=== PATIENT | female | born 1945 | race Caucasian/White ===

== ENCOUNTER 2019-11-09 14:21 | Outpatient (CLI) | payer MEDICARE, OTHER ==
--- NOTE | 2019-11-09 17:41 | MRI ---
MRI LUMBAR SPINE NONCONTRAST: DATE: 11/09/2019 HISTORY: 73-year-old female with low back pain and lumbar degenerative disc disease. COMPARISON: None FINDINGS: For the purposes of this report, it will be assumed that there are 5 lumbar-type vertebrae. Vertebral body heights are maintained. There is a levoscoliosis of the lumbar spine. There is multilevel degenerative disc disease and facet DJD, which is worse on the concave sides of the curvature, which would be on the right at the upper lumbar spine, and on the left in the lower lumbar spine and lumbosacral junction. T12-L1:No central stenosis or high-grade neural foraminal stenosis. L1-2:Slight retrolisthesis of L1 on L2. High-grade disc space narrowing. Conus medullaris terminates at upper L2. Moderate right neural foraminal stenosis. Mild to moderate left neural foraminal stenosis. No central stenosis. L2-3:Mild disc bulge. Mild to moderate right neural foraminal stenosis. No high-grade left neural for aminal stenosis. Moderate bilateral facet DJD. Mild central stenosis. L3-4:Disc bulge. Mild to moderate right neural foraminal stenosis. Moderate left neural foraminal jennifer nosis. Ligamentum flavum thickening and moderate bilateral facet DJD. Moderate central spinal canal stenosis. L4-5:Severe bilateral facet DJD causes grade 1 anterolisthesis of L4 on L5. Diffuse disc bulge. Mild to moderate right and moderate left neural foraminal stenosis. Mild to moderate central spinal canal stenosis. L5-S1:Severe left neural foraminal stenosis with chronic impingement on exiting left L5 nerve root an d complete effacement of neural foraminal fat signal. Severe left facet DJD. Diffuse disc bulge. Mild right neural foraminal stenosis. No central stenosis. IMPRESSION: 1. Lumbar spondylosis with multilevel moderate degenerative disc disease, lower level high-grade face t osteoarthrosis, and scoliosis. 2. Severe left neural foraminal stenosis at L5-S1 with chronic impingement of exiting left L5 nerve r oot. 3. Mild grade 1 spondylolisthesis at L4-5 due to severe facet osteoarthrosis.
== END 2019-11-09 14:22 | disposition home or self-care (01) ==
LOC: BICMRI 14:21
PROVIDERS: ATTEND Internal Medicine
DX: M51.36 Other intervertebral disc degeneration, lumbar region (principal); M43.16 Spondylolisthesis, lumbar region; M47.816 Spondylosis without myelopathy or radiculopathy, lumbar region; M41.9 Scoliosis, unspecified; M48.07 Spinal stenosis, lumbosacral region
CPT/HCPCS: 72148

== ENCOUNTER 2019-12-17 12:29 | Outpatient (CLI) | payer MEDICARE, OTHER ==
--- NOTE | 2019-12-17 13:47 | MRI ---
MRI cervical spine noncontrast: 12/17/2019 HISTORY: 74-year-old female with cervical radiculopathy and cervicalgia COMPARISON: None FINDINGS: Cervical spinal cord is normal in size and signal. Reversal of curvature with kyphosis at C5-6. Degenerative disc disease is mild at C2-3, moderate at C3-4, mild at C4-5, mild at C5-6, mild at C6-7 , and minimal at C7-T1. Facet DJD is C2-3: Severe bilaterally C3-4: Moderate to severe bilaterally C4-5: Severe on the right and mild to moderate on the left. C5-6: Normal bilaterally. C6-7: Normal bilaterally C7-T1: Moderate to severe bilaterally. 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 Disc-osteophyte complexes, mostly broad-based, encroach upon anterior aspect of spinal canal at all l evels from C2-3 through C7-T1. These indent the ventral surface of the spinal cord at C3-4 and C5-6. Thickened ligamentum flavum encroaches upon dorsal aspect of spinal canal, indenting the dorsal surfa ce of spinal cord at C2-3 and to lesser degree C3-4. Uncinate process osteophytes of varying sizes, mild and moderate, encroach upon neural foramina at al l levels from C2-3 through C7-T1. Caliber of spinal canal and neural foramina by individual levels are as follows: C1-2: No significant central spinal canal stenosis. Ossified or calcified prominent pannus or degener ative pseudopannus indents the ventral surface of thecal sac. C2-3: Significantly decreased AP dimension, but not transverse dimension, of spinal canal. Moderate o verall central spinal canal stenosis. No high-grade neural foraminal stenosis. C3-4: Retrolisthesis of C3 on C4. Moderate to severe central spinal canal stenosis. Severe right neur al foraminal stenosis. No significant left neural foraminal stenosis. C4-5: The severe right facet DJD causes mild grade 1 anterolisthesis of C4 on C5. Moderate central sp inal canal stenosis. Right neural foraminal stenosis is mild or moderate. No high-grade left neural foraminal stenosis. C5-6: Moderate central spinal canal stenosis. No high-grade neural foraminal stenosis. C6-7: Mild to moderate central spinal canal stenosis. No high-grade right neural foraminal stenosis. Moderate or moderately severe left neural foraminal stenosis. C7-T1: No central spinal canal stenosis. Moderate right neural foraminal stenosis. Moderate-severe le ft neural foraminal stenosis. IMPRESSION: 1.) Moderate cervical spondylosis, with multilevel degenerative disc disease, and multilevel high-gra de facet osteoarthrosis (including severe at right upper levels). 2) multilevel high-grade central spinal canal stenosis and significant neural foraminal stenosis.
--- NOTE | 2019-12-17 14:21 | MRI ---
MRI thoracic spine noncontrast: 12/17/2019 HISTORY: 74-year-old female with ICD-10: "M 54.14, radiculopathy, thoracic region" Mid back pain FINDINGS: Vertebral body heights are maintained. Large hemangioma (venous malformations of bone) involving almo st entire T3 vertebral body. Very small, subcentimeter such lesion at superior endplate of T2. Small one at mid body of T8 approximate 1 cm. Modic type II anterior endplate marrow changes at T6-7. No bone marrow edema at any level. Mild Modic type I endplate marrow changes at T11-12. Mild lateral curvature, probably in response to lumbar levoscoliosis. High-grade disc space narrowing with endplate irregularities including Schmorl's nodes at T2-3 and T11-12, and to a lesser degree T6-7. Thoracic spinal cord is normal in size and signal with no evidence of syringohydromyelia. No extrinsi c cord compression at any level. No severe central spinal canal stenosis or high-grade neural foraminal stenosis at any level. Small disc-osteophyte complexes indent the ventral aspect of the the oswaldo sac at several levels, most notably T2-3, T3-4, and T11-12, without contacting the spinal cord. At T10-11, thickened, probably calcified left ligamentum flavum abuts the dorsal aspect of spinal cor d on the left. There is mild to moderate central spinal canal stenosis at this level. IMPRESSION: 1. Thoracic spondylosis, with multilevel degenerative disc disease, most notably at T2-3 and T11-12. 2. Mild lateral curvature, in response to lumbar levoscoliosis.
== END 2019-12-17 12:30 | disposition home or self-care (01) ==
LOC: BICMRI 12:29
PROVIDERS: ATTEND Specialist
DX: M51.14 Intervertebral disc disorders with radiculopathy, thoracic region (principal); M47.24 Other spondylosis with radiculopathy, thoracic region; M41.9 Scoliosis, unspecified; M47.22 Other spondylosis with radiculopathy, cervical region; M50.10 Cervical disc disorder with radiculopathy, unspecified cervical region; M48.02 Spinal stenosis, cervical region
CPT/HCPCS: 72141; 72146

== ENCOUNTER 2021-11-19 10:48 | Inpatient (IN) | payer MEDICARE ==
[2021-11-19] MEDS ORDERED: Albuterol 200 PUFF (6.7GM INHALER) ONE (11:26)
[2021-11-19 11:43] LABS: #Eosinphils 0.1 thou/uL (0.0-0.7); #Lymphocytes 2.3 thou/uL (1.20-3.40); #Neutrophils 6.3 thou/uL (1.40-6.50); %Basophils 0.3 % (0.0-1.0); %Eosinophils 1.2 % (0.0-10.0); %Lymphocytes 23.2 % (21.0-51.0); %Monocytes 10.4 % (0.0-10.0); %Neutrophils 64.9 % (42.0-75.0); ALT (SGPT) 22 U/L (8-55); AST (SGOT) 22 U/L (5-34); Alkaline Phosphatase 69 U/L (40-110); Anion Gap 17 mmol/L (10-20); BUN (Urea Nitrogen) 19 mg/dL (9.8-20.1); Bilirubin, Total 1.1 mg/dL (0.2-1.2); Calc. Creatinine Clearance 0 mL/min (70-130); Calcium 9.6 mg/dL (7.8-10.44); Carbon Dioxide 26 mmol/L (23-31); Chloride 97 mmol/L (98-107); Globulin 3.3 g/dL (2.4-3.5); Glucose 88 mg/dL (83-110); Hemoglobin 11.6 g/dL (12.0-16.0); Magnesium 1.9 mg/dL (1.6-2.6); Mean Corpuscular HGB CONC 33.5 g/dL (32.0-36.0); Mean Corpuscular Hemoglobin 33.9 pg (27.0-31.0); Platelet Count 354 thou/uL (130-400); Potassium 3.9 mmol/L (3.5-5.1); Protein, Total 7.3 g/dL (5.8-8.1); RBC Distribution Width 11.6 % (11.5-14.5); Red Blood Cell (RBC) Count 3.41 mill/uL (4.20-5.40); Sodium 136 mmol/L (136-145); White Blood Cell (WBC) Count 9.7 thou/uL (4.8-10.8)
[2021-11-19] MEDS ORDERED: cefTRIAXone\\ROCEPHIN 2 GM VIAL ONE (11:45)
[2021-11-19] MEDS ORDERED: Aspirin Chewable 81 MG TAB ONE (11:45)
[2021-11-19] MEDS ORDERED: Nitroglycerin 0.4 MG TAB 1 EACH ONE (11:45)
[2021-11-19 12:44] LABS: Bilirubin Negative (Negative); Blood, Urine Negative (Negative); Clarity Clear (Clear); Glucose, Urine (Dipstick) Normal (Negative); Ketone, Urine Negative (Negative); Leukocyte Negative Leu/uL (Negative); Nitrite Negative (Negative); Protein, Urine (Dipstick) Negative (Neg-Trace); Specific Gravity, Urine 1.026 (1.002-1.036); Urobilinogen Normal mg/dL (Less than 2); pH, Urine 7.5 (5.0-9.0)
[2021-11-19] MEDS ORDERED: Bisacodyl 5 MG TAB PO PRN (13:07)
[2021-11-19] MEDS ORDERED: HYDROcodone/Acetaminophen 5/325 mg Tablet PO PRN (13:07)
[2021-11-19] MEDS ORDERED: Guaifenesin DM 100-10/5 ML UDCUP PO PRN (13:07)
[2021-11-19] MEDS ORDERED: Ondansetron PF 4 MG/2 ML Vial IVP PRN (13:07)
[2021-11-19] MEDS ORDERED: Senokot S 8.6-50 MG TAB PO PRN (13:07)
[2021-11-19] MEDS ORDERED: hydrALAZINE 20 MG/ML VIAL SLOW IVP PRN (13:21)
[2021-11-19] MEDS ORDERED: Azithromycin 500 MG VIAL ONE (13:24)
[2021-11-19] MEDS ORDERED: Furosemide 40 MG/4 ML VIAL ONE (13:24)
[2021-11-19 13:31] LABS: SARS-CoV-2 NAA Rapid Test Not Detected (NotDetected)
[2021-11-19 14:26] LABS: Troponin I 0.025 ng/mL (< 0.028)
[2021-11-19] MEDS: Furosemide 40 MG/4 ML VIAL SLOW IVP SCH (16:47)
[2021-11-19 17:51] VITALS: BMI 29.2
[2021-11-19 17:58] LABS: Troponin I 0.026 ng/mL (< 0.028)
[2021-11-19] MEDS: guaiFENesin ER 600 MG TAB PO SCH (20:25)
[2021-11-19] MEDS: Doxycycline 100 MG CAP PO SCH (20:25)
[2021-11-19] MEDS: Carvedilol 3.125 MG TAB PO SCH (20:25)
[2021-11-19] MEDS: Lisinopril 10 MG TAB PO SCH (20:26)
[2021-11-20] MEDS ORDERED: Melatonin 3 MG TAB PO PRN (00:11)
[2021-11-20] MEDS ORDERED: hydrOXYzine 10 MG TAB PO SCH (00:15)
[2021-11-20 04:27] LABS: Magnesium 1.8 mg/dL (1.6-2.6)
[2021-11-20] MEDS: Furosemide 40 MG/4 ML VIAL SLOW IVP SCH ×2 (05:18→14:51)
[2021-11-20] MEDS: Acetaminophen 325 MG TAB PO PRN (06:47)
[2021-11-20] MEDS: Aspirin Chewable 81 MG TAB PO SCH (09:54)
[2021-11-20] MEDS: Lisinopril 10 MG TAB PO SCH ×2 (09:54→20:13)
[2021-11-20] MEDS: Doxycycline 100 MG CAP PO SCH ×2 (09:55→20:13)
[2021-11-20] MEDS: Enoxaparin Sodium 40 MG/0.4 ML SYRINGE SC SCH (09:55)
[2021-11-20] MEDS: guaiFENesin ER 600 MG TAB PO SCH ×2 (09:55→20:13)
[2021-11-20] MEDS: Carvedilol 3.125 MG TAB PO SCH ×2 (09:55→20:13)
[2021-11-20] MEDS ORDERED: Citalopram 10 MG TAB PO SCH (10:30)
[2021-11-20] MEDS: cefTRIAXone\\ROCEPHIN 1 GM in Sodium Chloride 0.9% 100 ML IVPB SCH (12:11)
[2021-11-21] MEDS: Acetaminophen 325 MG TAB PO PRN (03:20)
[2021-11-21] MEDS: Furosemide 40 MG/4 ML VIAL SLOW IVP SCH ×2 (05:30→14:53)
[2021-11-21 10:02] LABS: #Basophils 0.1 thou/uL (0.0-0.2); #Eosinphils 0.1 thou/uL (0.0-0.7); #Lymphocytes 2.9 thou/uL (1.20-3.40); #Monocytes 0.8 thou/uL (0.11-0.59); #Neutrophils 3.8 thou/uL (1.40-6.50); %Basophils 1.4 % (0.0-1.0); %Eosinophils 1.4 % (0.0-10.0); %Lymphocytes 37.8 % (21.0-51.0); %Monocytes 10.5 % (0.0-10.0); Hemoglobin 13.9 g/dL (12.0-16.0); Mean Corpuscular HGB CONC 32.7 g/dL (32.0-36.0); Mean Corpuscular Hemoglobin 33.3 pg (27.0-31.0); Mean Platelet Volume 6.4 fL (7.4-10.4); Platelet Count 394 thou/uL (130-400); RBC Distribution Width 11.7 % (11.5-14.5); Red Blood Cell (RBC) Count 4.17 mill/uL (4.20-5.40); White Blood Cell (WBC) Count 7.7 thou/uL (4.8-10.8)
[2021-11-21 10:19] LABS: Anion Gap 20 mmol/L (10-20); BUN (Urea Nitrogen) 22 mg/dL (9.8-20.1); Calc. Creatinine Clearance 52 mL/min (70-130); Calcium 9.7 mg/dL (7.8-10.44); Carbon Dioxide 32 mmol/L (23-31); Chloride 89 mmol/L (98-107); Glucose 131 mg/dL (83-110); Potassium 3.7 mmol/L (3.5-5.1); Sodium 137 mmol/L (136-145)
[2021-11-21] MEDS: Aspirin Chewable 81 MG TAB PO SCH (11:33)
[2021-11-21] MEDS: Lisinopril 10 MG TAB PO SCH ×2 (11:33→19:58)
[2021-11-21] MEDS: Citalopram 10 MG TAB PO SCH (11:33)
[2021-11-21] MEDS: guaiFENesin ER 600 MG TAB PO SCH ×2 (11:33→19:58)
[2021-11-21] MEDS: Doxycycline 100 MG CAP PO SCH ×2 (11:33→19:58)
[2021-11-21] MEDS: Enoxaparin Sodium 40 MG/0.4 ML SYRINGE SC SCH (11:33)
[2021-11-21] MEDS: Carvedilol 3.125 MG TAB PO SCH ×2 (11:33→19:59)
[2021-11-21] MEDS: cefTRIAXone\\ROCEPHIN 1 GM in Sodium Chloride 0.9% 100 ML IVPB SCH (11:37)
[2021-11-21] MEDS: Cefdinir 300 MG CAP PO SCH (19:58)
[2021-11-21] MEDS ORDERED: Citalopram 10 MG TAB PO SCH (20:45)
[2021-11-22 05:21] LABS: #Basophils 0.1 thou/uL (0.0-0.2); #Eosinphils 0.1 thou/uL (0.0-0.7); #Monocytes 1.1 thou/uL (0.11-0.59); #Neutrophils 4.5 thou/uL (1.40-6.50); %Eosinophils 1.6 % (0.0-10.0); %Lymphocytes 33.8 % (21.0-51.0); %Monocytes 12.3 % (0.0-10.0); %Neutrophils 51.3 % (42.0-75.0); Hemoglobin 13.4 g/dL (12.0-16.0); Mean Corpuscular HGB CONC 34.5 g/dL (32.0-36.0); Mean Corpuscular Hemoglobin 34.5 pg (27.0-31.0); Mean Corpuscular Volume 99.9 fL (78.0-98.0); Mean Platelet Volume 6.5 fL (7.4-10.4); Platelet Count 386 thou/uL (130-400); RBC Distribution Width 11.6 % (11.5-14.5); Red Blood Cell (RBC) Count 3.88 mill/uL (4.20-5.40); White Blood Cell (WBC) Count 8.8 thou/uL (4.8-10.8)
[2021-11-22 05:40] LABS: Anion Gap 18 mmol/L (10-20); BUN (Urea Nitrogen) 22 mg/dL (9.8-20.1); Calc. Creatinine Clearance 55 mL/min (70-130); Calcium 9.1 mg/dL (7.8-10.44); Carbon Dioxide 33 mmol/L (23-31); Chloride 88 mmol/L (98-107); Glucose 99 mg/dL (83-110); Potassium 3.1 mmol/L (3.5-5.1); Sodium 136 mmol/L (136-145)
[2021-11-22 06:00] LABS: ALT (SGPT) 18 U/L (8-55); AST (SGOT) 19 U/L (5-34); Albumin 3.6 g/dL (3.4-4.8); Alkaline Phosphatase 63 U/L (40-110); Bilirubin, Direct 0.3 mg/dL (0.1-0.3); Bilirubin, Total 0.7 mg/dL (0.2-1.2); Protein, Total 6.8 g/dL (5.8-8.1)
[2021-11-22] MEDS ORDERED: Furosemide 40 MG TAB PO SCH (07:30)
[2021-11-22] MEDS: Cefdinir 300 MG CAP PO SCH ×2 (07:48→18:23)
[2021-11-22] MEDS: Doxycycline 100 MG CAP PO SCH ×2 (07:48→18:23)
[2021-11-22] MEDS: Citalopram 10 MG TAB PO SCH (07:49)
[2021-11-22] MEDS: Enoxaparin Sodium 40 MG/0.4 ML SYRINGE SC SCH (07:50)
[2021-11-22] MEDS: guaiFENesin ER 600 MG TAB PO SCH ×2 (07:50→18:23)
[2021-11-22] MEDS: Carvedilol 3.125 MG TAB PO SCH ×2 (07:50→18:22)
[2021-11-22] MEDS: Lisinopril 10 MG TAB PO SCH ×2 (07:50→18:22)
[2021-11-22] MEDS: Aspirin Chewable 81 MG TAB PO SCH (07:50)
[2021-11-22 12:58] VITALS: TEMP 98.1
[2021-11-22] MEDS ORDERED: Potassium Chloride 20 MEQ TAB PO SCH ×2 (13:00→15:45)
[2021-11-22 18:23] VITALS: BP 145/74
== END 2021-11-22 18:24 | disposition home or self-care (01) | DRG 193 ==
LOC: ERS 10:48 → ERHOLD 12:55 → 2NO 16:16
PROVIDERS: ADMIT Family Medicine; ATTEND Internal Medicine
DX: J18.9 Pneumonia, unspecified organism (principal); J96.01 Acute respiratory failure with hypoxia; I50.31 Acute diastolic (congestive) heart failure; Z20.822 Contact with and (suspected) exposure to COVID-19; R79.89 Other specified abnormal findings of blood chemistry; I11.0 Hypertensive heart disease with heart failure; G47.00 Insomnia, unspecified; F41.9 Anxiety disorder, unspecified; E87.6 Hypokalemia; Z87.891 Personal history of nicotine dependence; Z79.899 Other long term (current) drug therapy; Z98.890 Other specified postprocedural states
CPT/HCPCS: 36415; 71045; 71046; 71275; 80048; 80053; 80076; 81003; 83605; 83735; 83880; 84145; 84443; 84484; 85025; 85379; 85652; 86140; 87040; 93005; 93306; 93798; 93970; 94640; 96365; 96375; 97139; J0360; J0456; J0696; J1650; J1940; J3490; J7620; U0002

== ENCOUNTER 2022-08-20 20:08 | Emergency (ER) | payer MEDICARE ==
[~2022-08-20 20:08] MED LIST: Iopamidol-370 76% 500 ML 1 ML ONE
[2022-08-20] MEDS ORDERED: Acetaminophen 500 MG TAB ONE (22:24)
[2022-08-20] MEDS ORDERED: Dexamethasone 10 MG/ML VIAL ONE (22:29)
[2022-08-20] MEDS ORDERED: Lisinopril 10 MG TAB ONE (22:29)
[2022-08-20 22:41] LABS: #Basophils 0.1 thou/uL (0.0-0.2); #Eosinphils 0.2 thou/uL (0.0-0.7); #Lymphocytes 2.4 thou/uL (1.20-3.40); #Monocytes 0.8 thou/uL (0.11-0.59); #Neutrophils 6.3 thou/uL (1.40-6.50); %Basophils 0.5 % (0.0-1.0); %Lymphocytes 24.7 % (21.0-51.0); %Monocytes 8.6 % (0.0-10.0); %Neutrophils 64.2 % (42.0-75.0); Mean Corpuscular HGB CONC 33.6 g/dL (32.0-36.0); Mean Corpuscular Hemoglobin 32.9 pg (27.0-31.0); Mean Platelet Volume 7.4 fL (7.4-10.4); Platelet Count 257 10x3/uL (130-400); RBC Distribution Width 11.3 % (11.5-14.5); Red Blood Cell (RBC) Count 3.66 mill/uL (4.20-5.40); White Blood Cell (WBC) Count 9.7 10x3/uL (4.8-10.8)
[2022-08-20] MEDS ORDERED: Carvedilol 6.25 MG TAB PO SCH (22:45)
[2022-08-20 23:02] LABS: ALT (SGPT) 12 U/L (8-55); AST (SGOT) 17 U/L (5-34); Albumin 3.9 g/dL (3.4-4.8); Alkaline Phosphatase 76 U/L (40-110); Anion Gap 13 mmol/L (10-20); BUN (Urea Nitrogen) 13 mg/dL (9.8-20.1); Bilirubin, Total 0.6 mg/dL (0.2-1.2); Calc. Creatinine Clearance 0 mL/min (70-130); Calcium 9.9 mg/dL (7.8-10.44); Carbon Dioxide 26 mmol/L (23-31); Chloride 101 mmol/L (98-107); Estimated GFR 72; Glucose 110 mg/dL (83-110); Potassium 3.2 mmol/L (3.5-5.1); Protein, Total 6.9 g/dL (5.8-8.1); Sodium 137 mmol/L (136-145)
== END 2022-08-21 00:05 | disposition home or self-care (01) ==
LOC: ERS 20:08
DX: J03.00 Acute streptococcal tonsillitis, unspecified (principal); I10 Essential (primary) hypertension; Z87.891 Personal history of nicotine dependence
CPT/HCPCS: 36415; 70491; 80053; 85025; 93005; J1100; Q9967

== ENCOUNTER 2023-02-14 12:00 | Day surgery (SDC) | payer MEDICARE ==
[2023-02-11 10:36] VITALS: BMI 26.6
[2023-02-14] MEDS ORDERED: PROPOFOL 40 ML ONE (13:23)
[2023-02-14] MEDS ORDERED: Glycopyrrolate 0.2 MG/ML 5 ML SYRINGE ONE (13:30)
[2023-02-14] MEDS ORDERED: Ondansetron PF 4 MG/2 ML Vial ONE (13:30)
== END 2023-02-14 15:05 | disposition home or self-care (01) ==
LOC: MRI 12:00
PROVIDERS: ATTEND Orthopaedic Surgery
DX: M48.062 Spinal stenosis, lumbar region with neurogenic claudication (principal); I10 Essential (primary) hypertension; F41.9 Anxiety disorder, unspecified; Z79.899 Other long term (current) drug therapy
CPT/HCPCS: 72148; J2405; J2704

== ENCOUNTER 2024-01-09 10:01 | Day surgery (SDC) | payer MEDICARE ==
[2024-01-05 11:56] VITALS: BMI 30.2
[2024-01-09 11:59] LABS: Anion Gap 16 mmol/L (10-20); BUN (Urea Nitrogen) 22 mg/dL (9.8-20.1); Calc. Creatinine Clearance 64 mL/min (70-130); Calcium 9.6 mg/dL (7.8-10.44); Carbon Dioxide 25 mmol/L (23-31); Chloride 102 mmol/L (98-107); Estimated GFR 74; Glucose 87 mg/dL (83-110); Potassium 4.3 mmol/L (3.5-5.1); Sodium 139 mmol/L (136-145)
== END 2024-01-09 15:00 | disposition home or self-care (01) ==
LOC: MRI 10:01 → EDSTATUS 12:00 → MRI 15:00
PROVIDERS: ATTEND Registered Nurse
DX: M54.6 Pain in thoracic spine (principal); Z79.899 Other long term (current) drug therapy
CPT/HCPCS: 72146; 72148; 80048; J3010; J1100; J2405; J2704

== ENCOUNTER 2025-03-25 10:10 | Day surgery (SDC) | payer MEDICARE ==
[2025-03-22 10:21] VITALS: BMI 31.2
[2025-03-25 11:21] LABS: Anion Gap 17 mmol/L (10-20); BUN (Urea Nitrogen) 25 mg/dL (9.8-20.1); Calc. Creatinine Clearance 48 mL/min (70-130); Calcium 9.4 mg/dL (7.8-10.44); Carbon Dioxide 28 mmol/L (23-31); Chloride 97 mmol/L (98-107); Glucose 89 mg/dL (83-110); Potassium 4.7 mmol/L (3.5-5.1); Sodium 137 mmol/L (136-145)
[2025-03-25] MEDS ORDERED: Lidocaine 1% (PF) 30 ML VIAL ONE (12:03)
[2025-03-25] MEDS ORDERED: PROPOFOL 20 ML ONE (12:03)
[2025-03-25] MEDS ORDERED: fentaNYL PF 100 MCG/2 ML SYRINGE ONE (12:03)
[2025-03-25] MEDS ORDERED: Ondansetron PF 4 MG/2 ML Vial ONE (12:15)
== END 2025-03-25 14:10 | disposition home or self-care (01) ==
LOC: MRI 10:10
PROVIDERS: ATTEND Registered Nurse
DX: M54.16 Radiculopathy, lumbar region (principal); I11.0 Hypertensive heart disease with heart failure; I50.9 Heart failure, unspecified; E78.5 Hyperlipidemia, unspecified; Z85.828 Personal history of other malignant neoplasm of skin; Z96.652 Presence of left artificial knee joint; Z91.048 Other nonmedicinal substance allergy status; Z79.899 Other long term (current) drug therapy
CPT/HCPCS: 72148; 80048; J2704; 93005; 93010; J1100; J2405